=== PATIENT | female | born 1965 | race Caucasian/White ===

== ENCOUNTER 2016-06-07 20:01 | Emergency (ER) | payer BC ==
[~2016-06-07] VITALS: Ht 165.1 cm; Wt 72.6 kg
[~2016-06-07 20:01] MED LIST: CLEOCIN150 MG PO; EFFEXOR XR75 MG PO; IRON325 M1 PO
[2016-06-07] MEDS ORDERED: EFFEXOR XR37.5 MG PO (20:48)
== END 2016-06-07 21:10 | disposition short-term general hospital (02) ==
LOC: LAB 20:01 → ER 20:01
DX: N39.0 Urinary tract infection, site not specified (principal)